=== PATIENT | male | born 1995 | race Caucasian/White ===

== ENCOUNTER → 2021-07-15 08:45 | Outpatient (BNVA) | payer OTHER, SELFPAY | PROVIDERS: Family Provider Pediatrics Adolescent Medicine; PCP Pediatrics Adolescent Medicine; Visit Provider Nurse Practitioner Family | DX: Z20.822 Contact with and (suspected) exposure to COVID-19 (principal) | CPT/HCPCS: 87635 ==

== ENCOUNTER 2023-11-14 20:12 | Emergency (ER) | payer OTHER, SELFPAY ==
--- NOTE | 2023-11-14 20:15 | XRR_ITS ---
PROCEDURE INFORMATION: Exam: XR Chest Exam date and time: 11/14/2023 8:33 PM Age: 28 years old Clinical indication: Shortness of breath; Additional info: SOB TECHNIQUE: Imaging protocol: Radiologic exam of the chest. Views: 1 view. COMPARISON: No relevant prior studies available. FINDINGS: Lungs: Unremarkable. No consolidation. Pleural spaces: Unremarkable. No pleural effusion. No pneumothorax. Heart/Mediastinum: Unremarkable. No cardiomegaly. Bones/joints: Unremarkable. XR/XR chest 1V portable [id number] IMPRESSION: No acute findings.
[2023-11-14 20:21] VITALS: BP 143/85; PULSE 97; RESP 16; TEMP 36.4; O2SAT 99
--- NOTE | 2023-11-14 20:22 | ECG_ITS ---
[facility] Test Date: 2023-11-14 Pat Name: Rubens Pack Department: Room: Gender: Male Paginator: : 1995 Requested By: Maureen Pitts Order Number: [id number] Claudio MD: Jan Hester M.D. Measurements Intervals [place] Rate: 75 P: 70 MT: 166 QRS: 78 QRSD: 87 T: 68 QT: 327 QTc: 366 Interpretive Statements SINUS RHYTHM WITH SINUS ARRHYTHMIA POSSIBLE LEFT ATRIAL ENLARGEMENT [-0.1mV P-WAVE IN V1/V2] POSSIBLE RIGHT VENTRICULAR CONDUCTION DELAY [RSR (QR) IN V1/V2] SEPTAL MYOCARDIAL INFARCTION , OF INDETERMINATE AGE [40+ ms Q WAVE IN V1/V2] No previous ECG available for comparison Electronically Signed On 11-15-2023 16:25:32 CDT by Jan Hester M.D. [email or web address]
[2023-11-14 20:56] LABS: Basophils % 0.3 %; Eosinophils # 0.4 10^3/uL (0.0-0.8); Eosinophils % 4.2 %; Hematocrit 44.4 % (37-53); Lymphocytes # 3.4 10^3/uL (0.8-4.8); Lymphocytes % 34.1 %; Mean Corpuscular HGB Conc 33.6 g/dL (30-55); Mean Corpuscular Hemoglobin 28.6 pg (27-33); Mean Corpuscular Volume 85.2 fl (82-101); Mean Platelet Volume 9.9 fL (7.4-10.4); Monocytes # 0.6 10^3/uL (0.2-0.9); Monocytes % 5.5 %; Neutrophils # 5.51 10^3/uL (1.8-7.7); Neutrophils % 55.7 %; Nucleated Red Blood Cells % 0 %; Platelet Count 213 10^3/cmm (157-399); Red Blood Count 5.21 10^6/uL (3.85-5.65); Red Cell Distribution Width 12.1 % (12.1-15.1); White Blood Count 9.91 10^3/uL (3.29-11.43)
[2023-11-14 20:59] VITALS: BP 139/95; PULSE 76; RESP 17; O2SAT 97
[2023-11-14 21:12] LABS: Alanine Aminotransferase 24 U/L (0-41); Albumin Level 4.4 g/dL (3.5-5.2); Alkaline Phosphatase 64 U/L (40-130); Anion Gap 13.8 (5-19); Aspartate Amino Transferase 18 U/L (0-40); Blood Urea Nitrogen 11 mg/dL (6-20); Calcium 9.5 mg/dL (8.5-10.5); Carbon Dioxide 27 mmol/L (22-29); Chloride 105 mmol/L (98-107); Creatinine Clr Calc Pharmacy 132.6612; Globulin 2.4 g/dL (1.3-4.6); Glomerular Filtration Rate 79.7 mL/min (90-130); Glucose 99 mg/dL (65-115); Osmolality Calculated 293 mOsm/kg (285-295); Potassium 3.8 mmol/L (3.5-5.1); Sodium 142 mmol/L (136-145); Total Bilirubin 0.3 mg/dL (0.15-1.2); Total Protein 6.8 g/dL (6.6-8.7)
[2023-11-14 21:29] VITALS: BP 127/79; PULSE 74; O2SAT 97
[2023-11-14 21:41] VITALS: PULSE 74; O2SAT 97
[2023-11-14 21:50] LABS: Thyroid Stimulating Hormone 2.16 uIU/mL (0.27-4.20)
--- NOTE | 2023-11-14 22:04 | ED_ITS ---
Documented by User: MANDY Castillo 11/14/23 22:09 HPI - General Adult 2 General: Chief complaint: General Medical Stated complaint: bp high light headed fuzy sob Time Seen by Provider: 11/14/23 20:32 Source: patient Mode of arrival: ambulatory Limitations: no limitations History of Present Illness: Patient is a 28-year-old male with no pertinent past medical history who presents to the emergency department complaining of intermittent episodes of dizziness onset today. 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 He states he has never had these issues before. He denies any chest pain, palpitations, syncope, or other symptoms with these episodes. He does note his last episode of this occurred while in the waiting room waiting to get seen. He has had about 4 episodes in total. Has not taken anything for his symptoms and states they just resolve on their own. He is denying any recent head trauma or other concerning historical features. He has no personal cardiac history and states he also has no immediate family history of early cardiac issues. He has never been diagnosed with hypertension. Patient's significant other in the room states she is in nursing school and has been taking his blood pressures, which today have ran in the 170s systolic, stating that he is normally 120/80. In the emergency department, he arrives with blood pressure of 143/85. MD complaint: Dizziness and lightheadedness Onset (ago): hour(s) Pain Consistency: intermittent Relieving factors: none Exacerbating factors: none Associated symptoms: Reports dyspnea; Deny chest pain, headache(s), nausea, rash, palpitations or vomiting Review of Systems 2 General: Reports: 10 or more systems reviewed and unremarkable except in HPI and below Const: Denies: fever(s), chills or fatigue Eyes: Reports: change in vision and blurry vision ENMT: Denies: throat pain, ear or mastoid pain or nasal discharge Card: Reports: lightheadedness; Denies: chest pain, palpitations or swelling of feet/ankles Resp: Reports: dyspnea; Denies: productive cough or wheezing GI: Denies: abdominal pain, nausea, vomiting, diarrhea or constipation : Denies: flank pain, difficulty urinating, dysuria or urinary frequency Musc: Denies: neck pain, back pain or joint pain Skin/Breast: Denies: rash Neuro: Reports: dizziness; Denies: headache(s), numbness in extremities or weakness in extremities PFSH ED 2 PFSH: Social History Smoking and tobacco/nicotine status: current every day tobacco/nicotine user Physical Exam 2 Const: COMMON NORMALS: no acute distress, patient oriented x3 and no limitations GENERAL APPEARANCE: cooperative, comfortable and well developed ORIENTATION/CONSCIOUSNESS: Yes awake, Yes oriented to person, Yes oriented to place and Yes oriented to time HENMT: COMMON NORMALS: normocephalic, atraumatic, hearing grossly normal bilaterally, external ears normal, EAC's normal and TM's normal bilaterally H EAD & SCALP: normocephalic and atraumatic EXTERNAL EAR: Yes external ears normal EXTERNAL AUDITORY CANAL: EAC's normal TYMPANIC MEMBRANE: TM's normal bilaterally Eye: COMMON NORMALS: Equal, round and reactive pupils present, EOMs intact bilaterally and conjunctivae normal CONJUNCTIVA: Yes conjunctivae normal P UPIL: Yes Equal, round and reactive pupils present Neck/C-Spine: COMMON NORMALS: full ROM, supple and no JVD Resp: COMMON NORMALS: normal respiratory effort, No retractions, No use of accessory muscles and clear to auscultation bilaterally AUSCULTATION: clear to auscultation bilaterally Cardio: COMMON NORMALS: no JVD, regular rate, regular rhythm, No clicks present (Cardio), No murmurs present (Cardio) and No rub (Cardio) RATE: r egular rate RHYTHM: regular rhythm GI: COMMON NORMALS: Normal to inspection, nondistended, normoactive bowel sounds present, Soft to palpation and non-tender AUSCULTATION: Yes normoactive bowel sounds PALPATION: Yes Soft to palpation RECTAL EXAM: Yes deferred Extremity: COMMON NORMALS: normal to inspection, full ROM and capillary refill normal Neuro: COMMON NORMALS: patient oriented x3, CN's II-XII intact bilaterally, moves all extremities, no focal motor deficits and no sensory deficits noted SENSORIUM/ORIENTATION: Yes oriented to person, Yes oriented to place and Yes oriented to time Psych: COMMON NORMALS: mental status grossly normal and Normal thought process present THOUGHT PROCESS: Normal thought process present Skin: COMMON NORMALS: no rashes or lesions noted GENERAL SKIN EXAM: no rashes or lesions noted Course 2 Vital Signs: Vital signs: Vital Signs Temperature 97.6 F 11/14/23 20:21 Pulse Rate 60 11/14/23 22:09 Respiratory Rate 18 11/14/23 22:09 Blood Pressure 133/82 11/14/23 22:09 Pulse Oximetry 93 11/14/23 22:09 Oxygen Delivery Me thod Room Air 11/14/23 21:41 MDM - General Adult Medical Decision Making Patient seen for intermittent episodes of dizziness and lightheadedness accompanied by shortness of breath and some blurred vision. He arrives with unremarkable vitals, condition has remained stable throughout ED course and physical exam unremarkable. Chest x-ray nondiagnostic and his laboratory workup was all normal. EKG also and diagnostic. Significant other in room had noted that his blood pressure has been running high today, and normally he runs 120/80. I believe patient has been having symptoms related to spikes in blood pressure, likely an essential hypertension. He is a chronic smoker for many years, and does note some stress at work. He does not currently have a primary care provider, and I encouraged him to establish and follow-up with 1 to report a log of blood pressures, to see if he needs to be treated long-term for antihypertensives. He agrees with this plan and reasons to return are thoroughly discussed. Lab Data 11/14/23 20:52 11/14/23 20:52 Radiology Impressions Chest X-Ray 11/14/23 20:15 IMPRESSION: No acute findings. Laboratory Results WBC 9.91 10^3/uL (3.29-11.43) 11/14/23 20:52 RBC 5.21 10^6/uL (3.85-5.65) 11/14/23 20:52 Hgb 14.90 g/dL (11.27-16.99) 11/14/23 20:52 Hct 44.4 % (37-53) 11/14/23 20:52 MCV 85.2 fl (82-101) 11/14/23 20:52 MCH 28.6 pg (27-33) 11/14/23 20:52 MCHC 33.6 g/dL (30-55) 11/14/23 20:52 RDW 12.1 % (12.1-15.1) 11/14/23 20:52 Plt Count 213 10^3/cmm (157-399) 11/14/23 20:52 MPV 9.9 fL (7.4-10.4) 11/14/23 20:52 Neut % (Auto) 55.7 % 11/14/23 20:52 Lymph % (Auto) 34.1 % 11/14/23 20:52 [place] % (Auto) 5.5 % 11/14/23 20:52 Eos % (Auto) 4.2 % 11/14/23 20:52 Baso % (Auto) 0.3 % 11/14/23 20:52 Neut # (Auto) 5.51 10^3/uL (1.8-7.7) 11/14/23 20:52 Lymph # (Auto) 3.4 10^3/uL (0.8-4.8) 11/14/23 20:52 [place] # (Auto) 0.6 10^3/uL (0.2-0.9) 11/14/23 20:52 Eos # (Auto) 0.4 10^3/uL (0.0-0.8) 11/14/23 20:52 Baso # (Auto) 0.0 10^3/uL (0.0-0.1) 11/14/23 20:52 Nucleated RBC % (auto) 0 % 11/14/23 20:52 Nucleated RBCs # 0.0 /100WBC 11/14/23 20:52 Sodium 142 mmol/L (136-145) 11/14/23 20:52 Potassium 3.8 mmol/L (3.5-5.1) 11/14/23 20:52 Chloride 105 mmol/L (98-107) 11/14/23 20:52 Carbon Dioxide 27 mmol/L (22-29) 11/14/23 20:52 Anion Gap 13.8 (5-19) 11/14/23 20:52 BUN 11 mg/dL (6-20) 11/14/23 20:52 Creatinine 1.1 mg/dL (0.7-1.2) 11/14/23 20:52 GFR Calculation 79.7 mL/min (90-130) L 11/14/23 20:52 Glucose 99 mg/dL (65-115) 11/14/23 20:52 Calculated Osmolality 293 mOsm/kg (285-295) 11/14/23 20:52 Calcium 9.5 mg/dL (8.5-10.5) 11/14/23 20:52 Total Bilirubin 0.3 mg/dL (0.15-1.2) 11/14/23 20:52 AST 18 U/L (0-40) 11/14/23 20:52 ALT 24 U/L (0-41) 11/14/23 20:52 Alkaline Phosphatase 64 U/L (40-130) 11/14/23 20:52 Total Protein 6.8 g/dL (6.6-8.7) 11/14/23 20:52 Albumin 4.4 g/dL (3.5-5.2) 11/14/23 20:52 Globulin 2.4 g/dL (1.3-4.6) 11/14/23 20:52 TSH 2.16 uIU/mL (0.27-4.20) 11/14/23 20:52 All radiology interpretation(s) finalized by discharge Discharge Plan Discharge Patient Disposition: Home Clinical Impression: Essential (primary) hypertension Condition: Stable Prescriptions: No Action No Known Home Medications Discharge Orders: Discharge ED (Routine); Ordered 11/14/23 Ordered By: Aleksandr Foley Discharge Diet: Usual diet Discharge Activity: Increase activity as tolerated Patient Instructions: Hypertension (ED) Activity Restrictions/Additional Instructions: Monitor blood pressures at home as discussed. Establish and follow-up with primary care for further evaluation. Stop smoking and increase your fluid intake. Return if you develop any new or concerning symptoms. Coding Level of Care Code ED Client Service Executive for Chg Fwd Documented by User: Kelvin Quintero DO 11/15/23 07:08 HPI - General Adult 2 General: Chief complaint: General Medical Stated complaint: bp high light headed fuzy sob Time Seen by Provider: 11/14/23 20:32 PFSH ED 2 PFSH: Social History Smoking and tobacco/nicotine status: current every day tobacco/nicotine user Course 2 Vital Signs: Vital signs: Vital Signs Temperature 97.6 F 11/14/23 20:21 Pulse Rate 60 11/14/23 22:09 Respiratory Rate 18 11/14/23 22:09 Blood Pressure 133/82 11/14/23 22:09 Pulse Oximetry 93 11/14/23 22:09 Oxygen Delivery Me thod Room Air 11/14/23 21:41 MDM - General Adult Medical Decision Making Patient seen for intermittent episodes of dizziness and lightheadedness accompanied by shortness of breath and some blurred vision. He arrives with unremarkable vitals, condition has remained stable throughout ED course and physical exam unremarkable. Chest x-ray nondiagnostic and his laboratory workup was all normal. EKG also and diagnostic. Significant other in room had noted that his blood pressure has been running high today, and normally he runs 120/80. I believe patient has been having symptoms related to spikes in blood pressure, likely an essential hypertension. He is a chronic smoker for many years, and does note some stress at work. He does not currently have a primary care provider, and I encouraged him to establish and follow-up with 1 to report a log of blood pressures, to see if he needs to be treated long-term for antihypertensives. He agrees with this plan and reasons to return are thoroughly discussed. Chart reviewed and patient discussed with midlevel. Agree with assessment and plan. Lab Data 11/14/23 20:52 11/14/23 20:52 Radiology Impressions Chest X-Ray 11/14/23 20:15 IMPRESSION: No acute findings. Laboratory Results WBC 9.91 10^3/uL (3.29-11.43) 11/14/23 20:52 RBC 5.21 10^6/uL (3.85-5.65) 11/14/23 20:52 Hgb 14.90 g/dL (11.27-16.99) 11/14/23 20:52 Hct 44.4 % (37-53) 11/14/23 20:52 MCV 85.2 fl (82-101) 11/14/23 20:52 MCH 28.6 pg (27-33) 11/14/23 20:52 MCHC 33.6 g/dL (30-55) 11/14/23 20:52 RDW 12.1 % (12.1-15.1) 11/14/23 20:52 Plt Count 213 10^3/cmm (157-399) 11/14/23 20:52 MPV 9.9 fL (7.4-10.4) 11/14/23 20:52 Neut % (Auto) 55.7 % 11/14/23 20:52 Lymph % (Auto) 34.1 % 11/14/23 20:52 [place] % (Auto) 5.5 % 11/14/23 20:52 Eos % (Auto) 4.2 % 11/14/23 20:52 Baso % (Auto) 0.3 % 11/14/23 20:52 Neut # (Auto) 5.51 10^3/uL (1.8-7.7) 11/14/23 20:52 Lymph # (Auto) 3.4 10^3/uL (0.8-4.8) 11/14/23 20:52 [place] # (Auto) 0.6 10^3/uL (0.2-0.9) 11/14/23 20:52 Eos # (Auto) 0.4 10^3/uL (0.0-0.8) 11/14/23 20:52 Baso # (Auto) 0.0 10^3/uL (0.0-0.1) 11/14/23 20:52 Nucleated RBC % (auto) 0 % 11/14/23 20:52 Nucleated RBCs # 0.0 /100WBC 11/14/23 20:52 Sodium 142 mmol/L (136-145) 11/14/23 20:52 Potassium 3.8 mmol/L (3.5-5.1) 11/14/23 20:52 Chloride 105 mmol/L (98-107) 11/14/23 20:52 Carbon Dioxide 27 mmol/L (22-29) 11/14/23 20:52 Anion Gap 13.8 (5-19) 11/14/23 20:52 BUN 11 mg/dL (6-20) 11/14/23 20:52 Creatinine 1.1 mg/dL (0.7-1.2) 11/14/23 20:52 GFR Calculation 79.7 mL/min (90-130) L 11/14/23 20:52 Glucose 99 mg/dL (65-115) 11/14/23 20:52 Calculated Osmolality 293 mOsm/kg (285-295) 11/14/23 20:52 Calcium 9.5 mg/dL (8.5-10.5) 11/14/23 20:52 Total Bilirubin 0.3 mg/dL (0.15-1.2) 11/14/23 20:52 AST 18 U/L (0-40) 11/14/23 20:52 ALT 24 U/L (0-41) 11/14/23 20:52 Alkaline Phosphatase 64 U/L (40-130) 11/14/23 20:52 Total Protein 6.8 g/dL (6.6-8.7) 11/14/23 20:52 Albumin 4.4 g/dL (3.5-5.2) 11/14/23 20:52 Globulin 2.4 g/dL (1.3-4.6) 11/14/23 20:52 TSH 2.16 uIU/mL (0.27-4.20) 11/14/23 20:52 Discharge Plan Discharge Patient Disposition: Home Clinical Impression: Essential (primary) hypertension Condition: Stable Prescriptions: No Action No Known Home Medications Discharge Orders: Discharge ED (Routine); Ordered 11/14/23 Ordered By: Aleksandr Foley Discharge Diet: Usual diet Discharge Activity: Increase activity as tolerated Patient Instructions: Hypertension (ED) Activity Restrictions/Additional Instructions: Monitor blood pressures at home as discussed. Establish and follow-up with primary care for further evaluation. Stop smoking and increase your fluid intake. Return if you develop any new or concerning symptoms. Coding Level of Care Code ED Client Service Executive for Juliette Bryant
[2023-11-14 22:09] VITALS: BP 133/82; PULSE 60; RESP 18; O2SAT 93
== END 2023-11-14 22:11 | disposition home or self-care (01) ==
PROVIDERS: Emergency Medicine; Emergency Provider Physician Assistant
DX: I10 Essential (primary) hypertension (principal); F17.200 Nicotine dependence, unspecified, uncomplicated
CPT/HCPCS: 36415; 71045; 80053; 84443; 85025; 93005; 99285

== ENCOUNTER 2024-06-24 07:24 | Outpatient (CLI) | payer OTHER, SELFPAY ==
[2024-06-24 07:43] LABS: Basophils % 0.3 %; Eosinophils # 0.5 10^3/uL (0.0-0.8); Eosinophils % 5.1 %; Hematocrit 46.2 % (37-53); Lymphocytes # 3.4 10^3/uL (0.8-4.8); Lymphocytes % 36.9 %; Mean Corpuscular HGB Conc 33.1 g/dL (30-55); Mean Corpuscular Hemoglobin 28.5 pg (27-33); Mean Platelet Volume 9.8 fL (7.4-10.4); Monocytes # 0.6 10^3/uL (0.2-0.9); Monocytes % 6.3 %; Neutrophils # 4.71 10^3/uL (1.8-7.7); Neutrophils % 51.2 %; Nucleated Red Blood Cells % 0 %; Platelet Count 210 10^3/cmm (157-399); Red Blood Count 5.37 10^6/uL (3.85-5.65); Red Cell Distribution Width 12.1 % (12.1-15.1); White Blood Count 9.21 10^3/uL (3.29-11.43)
[2024-06-24 08:02] LABS: Estmated Average Glucose 111; Hemoglobin A1C 5.5 % (4.0-6.0)
[2024-06-24 08:10] LABS: Alanine Aminotransferase 23 U/L (0-41); Albumin Level 4.4 g/dL (3.5-5.2); Alkaline Phosphatase 65 U/L (40-130); Aspartate Amino Transferase 17 U/L (0-40); Blood Urea Nitrogen 8 mg/dL (6-20); Calcium 9.3 mg/dL (8.5-10.5); Carbon Dioxide 27 mmol/L (22-29); Chloride 106 mmol/L (98-107); Chol HDL Ratio 4.34 mg/dL (1.0-5.00); Cholesterol 178 mg/dL (0-200); Globulin 1.9 g/dL (1.3-4.6); Glomerular Filtration Rate 79.7 mL/min (90-130); Glucose 109 mg/dL (65-115); HDL Cholesterol 41 mg/dL (60-100); LDL Cholesterol Calculated 114 mg/dL (50-129); LDL HDL Ratio 2.78 RATIO (0.00-3.22); Osmolality Calculated 291 mOsm/kg (285-295); Sodium 141 mmol/L (136-145); Thyroid Stimulating Hormone 1.69 uIU/mL (0.27-4.20); Total Bilirubin 0.4 mg/dL (0.15-1.2); Total Protein 6.3 g/dL (6.6-8.7); Triglycerides 114 mg/dL (0-150)
== END 2024-06-24 07:25 | disposition home or self-care (01) ==
LOC: LAB 07:27
PROVIDERS: PCP Family Medicine Adult Medicine; Visit Provider Internal Medicine Nephrology
DX: Z01.89 Encounter for other specified special examinations (principal)
CPT/HCPCS: 36415; 80053; 80061; 83036; 84443; 85025